=== PATIENT | male | born 1985 | race Caucasian/White ===

== ENCOUNTER 2025-02-02 15:34 | Emergency (ER) | payer SELFPAY ==
[2025-02-02] MEDS ORDERED: Acetaminophen 500 MG TAB ONE (16:11)
[2025-02-02] MEDS ORDERED: metroNIDAZOLE 500 MG (100 mL) BAG ONE (16:53)
[2025-02-02 16:59] LABS: Hematocrit 47.1 % (38.8-50.0); Hemoglobin 14.3 g/dL (13.5-17.5); Mean Corpuscular Hemoglobin 24.4 pg (27.0-33.0); Mean Corpuscular Volume 80.4 fL (81.2-95.1); Platelet Count 317 10x3/uL (150-450); Red Blood Cell (RBC) Count 5.86 10x6/uL (4.32-5.72); White Blood Cell (WBC) Count 27.19 10x3/uL (3.5-10.5)
[2025-02-02 17:25] LABS: ALT (SGPT) 25 U/L (Less than 45); AST (SGOT) 51 U/L (11-34); Albumin 2.0 g/dL (3.1-4.5); Alkaline Phosphatase 114 U/L (40-110); BUN (Urea Nitrogen) 28 mg/dL (8.9-20.6); Bilirubin, Total 0.9 mg/dL (0.3-1.2); Calc. Creatinine Clearance 0 mL/min (70-130); Calcium 7.6 mg/dL (7.8-10.44); Carbon Dioxide 20 mmol/L (22-29); Globulin 5.6 g/dL (2.4-3.5); Glucose 74 mg/dL (70-105)
[2025-02-02 17:34] LABS: Anisocytosis SLIGHT = 6-15 cells (100X) (0-5/hpf); MDiff Complete? YES; Microcytosis SLIGHT = 6-15 cells (100X) (0-5/hpf); Nucleated RBC (Manual Ct) 1 % (0); Platelet Adequacy Comment Appears Adequate; Toxic Granulation SLIGHT
[2025-02-02 17:50] LABS: Anion Gap 19 mmol/L (10-20); Chloride 95 mmol/L (98-107); Potassium 5.0 mmol/L (3.5-5.1); Sodium 129 mmol/L (136-145)
== END 2025-02-02 19:36 | disposition short-term general hospital (02) ==
LOC: CSHERS 15:34
DX: A41.9 Sepsis, unspecified organism (principal); L03.115 Cellulitis of right lower limb
CPT/HCPCS: 36415; 71045; 80053; 83605; 85025; 86140; 87040; 96374; 96375; J2543; J3373